=== PATIENT | female | born 1995 | race African-American/Black ===

== ENCOUNTER 2017-05-10 09:21 | Inpatient (IN) ==
--- NOTE | 2017-05-10 12:08 | Ultrasound Report ---
Biophysical profile. Indication: Variable decelerations. Comparison: April 24, 2017. 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 heart rate, 146 bpm. ANTHONY, 11.3 cm. Position vertex, placenta anterior. PROCEDURE INTERPRETED AT [facility] DEPARTMENT OF RADIOLOGY Final Report Signed by: Dr. Kaylah Isabel
[2017-05-10] MEDS ORDERED: BUTORPHANOL 2 MG/ML VIAL IV PRN (12:28)
[2017-05-10] MEDS ORDERED: ONDANSETRON 4 MG/2 ML VIAL IV PRN ×2 (12:28→18:31)
[2017-05-10] MEDS ORDERED: AMPICILLIN INJ 2,000 MG in SODIUM CHLORIDE 0.9% 100 ML IV ONE (12:41)
[2017-05-10 12:55] LABS: Basophils % 0.1 % (0.0-0.8); Hematocrit 34.8 VOL% (35.7-47.0); Hemoglobin 11.3 GM/DL (12.0-16.0); Immature Granulocytes % 0.5 %; Immature Granulocytes Absolute 0.06 #; Lymphocytes # 1.9 10*3/uL (1.4-4.0); Lymphocytes % 14.1 % (21.3-54.2); Mean Corpuscular HGB Conc 32.5 GM/DL (32-36); Mean Corpuscular Hemoglobin 29 PG (27-34); Mean Corpuscular Volume 88.8 FL (87-102); Mean Platelet Volume 9.9 FL (9.6-12.0); Monocytes % 7.5 % (1.7-12.7); Neutrophils # 10.3 10*3/uL (1.4-7.4); Neutrophils % 77.8 % (38.7-73.9); Platelet Count 270 T/CUMM (130-400); Red Blood Count 3.92 MC/CUMM (3.8-5.5); Red Cell Distribution Width 15.2 % (9.3-17.3); White Blood Count 13.2 T/CUMM (4-12)
[2017-05-10] MEDS: LACTATED RINGERS 1,000 ML IV SCH ×2 (13:02→13:38)
[2017-05-10] MEDS ORDERED: fentaNYL 2 MCG/ROPIV 0.2% EPID 150 ML EPIDURAL SCH (13:08)
[2017-05-10] MEDS ORDERED: hydrOXYzine HCL 25 MG/1 ML VIAL IM PRN (13:08)
[2017-05-10] MEDS ORDERED: PROMETHAZINE 25 MG/1 ML VIAL IM ONE (13:08)
[2017-05-10] MEDS ORDERED: ePHEDrine 50 MG/ML AMP IV PRN (13:08)
[2017-05-10] MEDS ORDERED: diphenhydrAMINE 50 MG/1 ML VIAL IV PRN (13:08)
[2017-05-10] MEDS ORDERED: FAMOTIDINE 20 MG/2 ML VIAL IV ONE (13:08)
[2017-05-10] MEDS ORDERED: CITRIC ACID/SODIUM CITRATE 30 ML UDCUP PO ONE (13:08)
[2017-05-10] MEDS ORDERED: ONDANSETRON 4 MG/2 ML VIAL IV ONE (13:08)
[2017-05-10] MEDS ORDERED: OXYTOCIN/LR 20 UNIT/1,000 ML BAG IV SCH (15:00)
[2017-05-10 16:21] LABS: Apearance,Urine CLEAR (Clear); Bilirubin,Urine Negative (Negative); Blood, Urine Negative (Negative); Glucose,Urine (UA) Negative (Negative); Ketones,Urine 20 mg/dL (Negative); Mucus,Urine Occasional /LPF (Occasional); Nitrite,Urine Negative (Negative); Protein,Urine Negative; RBC,Urine 3 /HPF (0-4); Squamous Epithelial Cell,Urine Occasional /HPF (0-10); Urine Color Yellow (Yellow); Urine Specific Gravity 1.015 (1.001-1.035); Urine Urobilinogen < 2.0 EU/DL (0.2-1.0); WBC,Urine 1 /HPF (0-6)
[2017-05-10] MEDS ORDERED: AMPICILLIN INJ 1,000 MG in SODIUM CHLORIDE 0.9% 100 ML IV SCH (16:30)
[2017-05-10] MEDS ORDERED: LANOLIN 50% CREAM 0.3 OZ TUBE TOP PRN (18:31)
[2017-05-10] MEDS ORDERED: oxyCODONE/ACETAMINOPHEN 5-325 MG TABLET PO PRN (18:31)
[2017-05-10] MEDS ORDERED: WITCH HAZEL PADS 100/JAR TOP PRN (18:31)
[2017-05-10] MEDS ORDERED: BISACODYL 10 MG SUPP RECTAL PRN (18:31)
[2017-05-10] MEDS ORDERED: MEASLES/MUMPS/RUBELLA VACCINE 0.5 ML VIAL SUBCUT ONE (18:31)
[2017-05-10] MEDS ORDERED: DIPH/TET/ACEL PERT BOOSTER VACCINE 0.5 ML VIAL IM ONE (18:31)
[2017-05-10] MEDS ORDERED: BENZOCAINE 20%/MENTHOL 0.5% SPRAY 56 GM CAN TOP PRN (18:31)
[2017-05-10] MEDS ORDERED: ACETAMINOPHEN 325 MG TABLET PO PRN (18:31)
[2017-05-10] MEDS ORDERED: RHO(D) IMMUNE GLOBULIN 300 MCG SYRINGE IM ONE (18:31)
[2017-05-10] MEDS ORDERED: OXYTOCIN/LR 20 UNIT/1,000 ML BAG IV ONE (18:31)
[2017-05-10] MEDS ORDERED: HYDROCORTISONE 2.5% RECTAL CREAM 30 GM TUBE TOP PRN (18:31)
--- NOTE | 2017-05-10 18:31 | History and Physical Update ---
History and Physical Update - Dictation Physical: refer to scanned H&P - Physical Exam Mental Status: alert and oriented Heart: regular rate and rhythm Lung: clear to auscultation Abdomen: within normal limits Vitals: within normal limits History and Physical Changes: 38+ weeks in active labor
[2017-05-10] MEDS: oxyCODONE/ACETAMINOPHEN 5-325 MG TABLET PO PRN (20:50)
[2017-05-10] MEDS: DOCUSATE SODIUM 100 MG CAPSULE PO SCH (20:50)
[2017-05-11] MEDS: IBUPROFEN 800 MG TABLET PO PRN ×3 (01:30→18:10)
[2017-05-11 02:48] LABS: Basophils % 0.1 % (0.0-0.8); Eosinophils % 0.1 % (0.00-10.9); Hematocrit 27.2 VOL% (35.7-47.0); Immature Granulocytes % 0.7 %; Immature Granulocytes Absolute 0.13 #; Lymphocytes # 2.5 10*3/uL (1.4-4.0); Lymphocytes % 12.4 % (21.3-54.2); Mean Corpuscular HGB Conc 33.1 GM/DL (32-36); Mean Corpuscular Hemoglobin 29 PG (27-34); Mean Corpuscular Volume 87.5 FL (87-102); Mean Platelet Volume 10.5 FL (9.6-12.0); Monocytes # 1.9 10*3/uL (0.11-0.8); Monocytes % 9.7 % (1.7-12.7); Neutrophils # 15.3 10*3/uL (1.4-7.4); Platelet Count 215 T/CUMM (130-400); Red Blood Count 3.11 MC/CUMM (3.8-5.5); Red Cell Distribution Width 15.4 % (9.3-17.3); White Blood Count 19.9 T/CUMM (4-12)
[2017-05-11] MEDS: oxyCODONE/ACETAMINOPHEN 5-325 MG TABLET PO PRN (09:05)
[2017-05-11] MEDS: DOCUSATE SODIUM 100 MG CAPSULE PO SCH ×2 (09:05→21:43)
[2017-05-12] MEDS: IBUPROFEN 800 MG TABLET PO PRN (04:57)
[2017-05-12 08:21] VITALS: BP 108/62
[2017-05-12] MEDS: DOCUSATE SODIUM 100 MG CAPSULE PO SCH (09:00)
--- NOTE | 2017-05-12 11:22 | Pathology Report from [facility] ---
[facility] ACCESSION # : [id number] PATIENT NAME : Nhi Webb ORDERING DR : JACQUE LITTLE CLINICAL HX: IUP @ 38 wks, non reassuring FHR, BBP 6 of 10 POST-OP DX: Same SPECIMEN INFO: Placenta GROSS DESCRIPTION: Received fresh labeled CLINT WEBB is a 479 gm placenta measuring 20.0 x 14.5 x 2.5 cm. The membranes are pink leija and translucent. The umbilical cord measures 49.0 cm, contain three vessels and is centrally inserted. The surface is blue machuca and circumarginate. The maternal surface is intact with numerous calcifications seen. Sections submitted A- membranes and cord, B- and maternal surfaces. DIAGNOSIS FOR NHI WEBB: PLACENTA: Trivascular umbilical. Unremarkable membranes. Term placenta with dystrophic calcification. COLLECTED DATE: 05/11/2017 [facility] REPORT DATE: 05/12/2017 ELECTRONICALLY SIGNED BY: Clinton Dominguez III, M.D. 05/12/2017 - 9:49:42 [facility]
--- NOTE | 2017-06-03 23:41 | Operative Note ---
Date of procedure: 05/10/17 Pre-op diagnosis: 38wks in active labor Post-op diagnosis: same Procedure: Delivery note. Patient progressed to complete and pushing with labor epidural and Pitocin augmentation and delivered a viable over a second degree MLE with extension into the capsule. Nuchal cord x 1 was reduced at delivery. Baby was bulb suctioned on the perineum. Cord was doubly clamped and cut. Cord blood was collected and placenta was delivered intact. Baby was handed to personnel in attendance. Laceration was repaired with 2-0 and 3-0 chromic in the usual fashion with good approximation and hemostasis. Fundus is firm. Estimated blood loss 300 mL. Complications none. Patient is stable and the baby is stable. Anesthesia: epidural Surgeon / Physician: Sabrina French Estimated blood loss: other (500cc) Specimens: other (Placenta to path; cord blood to lab) Condition: stable Disposition: PACU Results - Labs CBC & BMP: 05/11/17 02:07 Discharge Plan - Discharge Data Disposition: Disch To Home/Self Care - Discharge Medications No Action Pediatric Multivitamin No.42 [Flintstones Complete Chew Tab] 1 tablet PO DAILY - Follow Up or Referral Follow Up: Sabrina French DO [Physician] - 06/20/17 10:45 am - Forms/Instructions Instructions: Perineal Care (DC), Vaginal Delivery (DC), Bleeding (DC)
== END 2017-05-12 16:50 | disposition home or self-care (01) | DRG 560 ==
LOC: N.LDOUT 09:21 → N.LD 12:42 → N.OB 20:10
PROVIDERS: ADMIT Obstetrics & Gynecology; ATTEND Obstetrics & Gynecology